=== PATIENT | female | born 1945 | race African-American/Black ===

== ENCOUNTER 2017-11-14 15:11 | Emergency (ER) | payer MEDICARE, BC ==
[~2017-11-14] VITALS: Ht 172.7 cm; Wt 100.0 kg
[~2017-11-14 15:11] MED LIST: AMLO1CAP6 PO; ATOR40TA70 PO; LORA0.5T2 PO; METF500T6 PO; PANT40TA4 PO
[2017-11-14 16:54] LABS: BASOPHILS % 1.1 % (0.0-2.0); EOSINOPHILS % 2.8 % (0.0-5.0); HEMATOCRIT. 47.6 % (36.0-48.0); HEMOGLOBIN. 15.7 g/dL (12.0-16.0); LYMPHOCYTES % 30.2 % (20.0-50.0); MEAN CORPUSCULAR HEMOGLOBIN 30.1 pg (28.0-32.0); MEAN CORPUSCULAR VOLUME 91.2 fL (81.0-99.0); MEAN PLATELET VOLUME 10.9 fl (7.4-10.4); MONOCYTES % 9.2 % (2.0-8.0); NEUTROPHILS % 56.7 % (40.0-76.0); PLATELET 262 x1000/uL (130-400); RED BLOOD CELL COUNT 5.22 mill/uL (4.2-5.4); RED CELL DISTRIBUTION WIDTH 13.8 % (11.6-14.6)
[2017-11-14 16:57] LABS: CHLORIDE 107 mEq/L (98-107)
[2017-11-14 19:28] VITALS: BP 156/74
[2017-11-14] MEDS ORDERED: IBUPROFEN 600MG TABLET PO ONE (19:30)
[2017-11-14 19:46] LABS: CLARITY URINE CLEAR (CLEAR); COLOR URINE YELLOW (YELLOW); KETONES URINE TRACE (NEGATIVE); LEUKOCYTE ESTERASE URINE NEGATIVE (NEGATIVE); NITRITE URINE NEGATIVE (NEGATIVE); OCCULT BLOOD URINE NEGATIVE (NEGATIVE); PROTEIN URINE NEGATIVE (NEGATIVE); SPECIFIC GRAVITY URINE 1.037 (1.005-1.030); UROBILINOGEN URINE 0.2 E.U./dL (0.2-1.0)
== END 2017-11-14 21:21 | disposition home or self-care (01) ==
LOC: ER 15:11
DX: R10.31 Right lower quadrant pain (principal); M54.5 Low back pain; R11.0 Nausea
CPT/HCPCS: 36415; 74176; 80053; 81003; 85025; 85610; 99285

== ENCOUNTER 2022-07-01 05:45 | Inpatient (IN) | payer BC ==
[~2022-07-01] VITALS: Ht 172.7 cm; Wt 81.6 kg
[~2022-07-01 05:45] MED LIST changes: +METF-414 PO; -METF500T6 PO; -PANT40TA4 PO; +PANT40TA51 PO
[2022-07-01] MEDS ORDERED: ONDANSETRON HCL 4MG/2ML INJ IV STA (05:54)
[2022-07-01] MEDS ORDERED: SODIUM CHLORIDE 0.9% 1,000 ML IV ONE (06:00)
[2022-07-01] MEDS ORDERED: MECLIZINE 25MG TABLET PO ONE (06:00)
[2022-07-01] MEDS ORDERED: MECLIZINE 25MG TABLET PO NR (06:15)
[2022-07-01 06:35] LABS: BASOPHILS % 0.6 % (0.0-2.0); EOSINOPHILS % 1.2 % (0.0-5.0); HEMATOCRIT. 46.4 % (36.0-48.0); LYMPHOCYTES % 21.9 % (20.0-50.0); MEAN CORPUSCULAR HEMOGLOBIN 30.6 pg (28.0-32.0); MEAN CORPUSCULAR VOLUME 94.9 fL (81.0-99.0); MEAN PLATELET VOLUME 9.9 fl (7.4-10.4); MONOCYTES % 5.8 % (2.0-8.0); NEUTROPHILS % 70.5 % (40.0-76.0); PLATELET 299 x1000/uL (130-400); RED BLOOD CELL COUNT 4.89 mill/uL (4.2-5.4); RED CELL DISTRIBUTION WIDTH 13.8 % (11.6-14.6)
[2022-07-01 06:43] LABS: PROTHROMBIN TIME 10.3 sec (9.6-11.0)
[2022-07-01 06:45] LABS: CHLORIDE 108 mEq/L (98-107)
[2022-07-01] MEDS ORDERED: LEVOFLOXACIN 750MG PREMIX 150 ML IV ONE (07:45)
[2022-07-01] MEDS ORDERED: METRONIDAZOLE 500 MG PREMIX 100 ML IV ONE (07:45)
[2022-07-01] MEDS ORDERED: KETOROLAC 30MG/ML VIAL IV ONE (08:00)
[2022-07-01] MEDS ORDERED: ONDANSETRON HCL 4MG/2ML INJ IV PRN (10:30)
[2022-07-01] MEDS ORDERED: CLONIDINE 0.1MG TABLET PO PRN (10:30)
[2022-07-01] MEDS ORDERED: GUAIFENESIN 200MG/10ML SUGAR FREE UDC PO PRN (10:30)
[2022-07-01] MEDS ORDERED: DOCUSATE SODIUM 100MG CAPSULE PO PRN (10:30)
[2022-07-01] MEDS ORDERED: NALOXONE HCL 0.4MG/ML VIAL IV PRN (10:30)
[2022-07-01] MEDS ORDERED: IPRATROPIUM/ALBUTEROL 0.5-3(2.5)MG/3ML NEB HHN PRN (10:30)
[2022-07-01] MEDS ORDERED: ALBUTEROL (0.083%) 2.5MG/3ML NEB HHN PRN (10:30)
[2022-07-01] MEDS ORDERED: ACETAMINOPHEN 325MG TABLET PO PRN ×2 (10:30)
[2022-07-01] MEDS ORDERED: MAGNESIUM/ALUMINUM HYDROXIDE/SIMETHICONE 30ML UDC PO PRN (10:30)
[2022-07-01] MEDS ORDERED: IPRATROPIUM BROMIDE (0.02%) 0.5MG/2.5ML NEB HHN PRN (10:30)
[2022-07-01 11:00] VITALS: BP 96/43
[2022-07-01] MEDS ORDERED: CEFTRIAXONE 1GM PREMIX 50 ML IV SCH (11:15)
[2022-07-01] MEDS ORDERED: DEXTROSE 50% WATER 50ML SYRINGE IV PRN (11:15)
[2022-07-01] MEDS ORDERED: MECLIZINE 25MG TABLET PO PRN (11:15)
[2022-07-01 11:31] VITALS: BP 96/43
[2022-07-01] MEDS: INSULIN LISPRO 100 UNITS/ML SUBCUT SCH ×3 (12:50→21:10)
[2022-07-01] MEDS: BLOOD SUGAR DIAGNOSTIC STRIP TEST SCH ×3 (12:52→21:01)
[2022-07-01] MEDS: SODIUM CHLORIDE 0.9% 1,000 ML IV SCH ×2 (12:55→21:15)
[2022-07-01] MEDS: METRONIDAZOLE 500 MG PREMIX 100 ML IV SCH ×2 (13:00→23:11)
[2022-07-01] MEDS: ENOXAPARIN 30MG/0.3ML SYR SUBCUT SCH ×2 (13:59→21:06)
[2022-07-01 16:00] VITALS: BP 120/55
[2022-07-01 20:00] VITALS: BP 119/55
[2022-07-01] MEDS: ATORVASTATIN CALCIUM 40MG TABLET PO SCH (21:06)
[2022-07-01] MEDS: HYDROCODONE/ACETAMINOPHEN 5/325MG TABLET PO PRN (21:07)
[2022-07-02] VITALS: BP 101/43
[2022-07-02 04:00] VITALS: BP 106/50
[2022-07-02] MEDS: HYDROCODONE/ACETAMINOPHEN 5/325MG TABLET PO PRN ×4 (04:05→21:36)
[2022-07-02] MEDS: METRONIDAZOLE 500 MG PREMIX 100 ML IV SCH ×3 (06:17→21:35)
[2022-07-02] MEDS: SODIUM CHLORIDE 0.9% 1,000 ML IV SCH ×2 (06:18→13:18)
[2022-07-02 07:08] LABS: BASOPHILS % 0.3 % (0.0-2.0); EOSINOPHILS % 0.5 % (0.0-5.0); HEMATOCRIT. 40.7 % (36.0-48.0); HEMOGLOBIN. 13.1 g/dL (12.0-16.0); LYMPHOCYTES % 20.7 % (20.0-50.0); MEAN CORPUSCULAR HEMOGLOBIN 30.6 pg (28.0-32.0); MEAN CORPUSCULAR VOLUME 95.3 fL (81.0-99.0); MEAN PLATELET VOLUME 9.7 fl (7.4-10.4); MONOCYTES % 8.6 % (2.0-8.0); NEUTROPHILS % 69.9 % (40.0-76.0); PLATELET 259 x1000/uL (130-400); RED BLOOD CELL COUNT 4.27 mill/uL (4.2-5.4); RED CELL DISTRIBUTION WIDTH 13.9 % (11.6-14.6)
[2022-07-02 07:33] LABS: CHLORIDE 117 mEq/L (98-107)
[2022-07-02] MEDS: BLOOD SUGAR DIAGNOSTIC STRIP TEST SCH ×4 (07:41→21:56)
[2022-07-02 07:50] LABS: HDL CHOLESTEROL 49 mg/dL (40-59); LDL CHOLESTEROL 80 mg/dL (5-100); T4 FREE 1.02 ng/dL (0.76-1.46)
[2022-07-02 08:00] VITALS: BP 95/43
[2022-07-02] MEDS: INSULIN LISPRO 100 UNITS/ML SUBCUT SCH ×4 (08:30→21:56)
[2022-07-02] MEDS ORDERED: DEXTROSE 50% WATER 50ML SYRINGE IV PRN (08:30)
[2022-07-02] MEDS: ENOXAPARIN 30MG/0.3ML SYR SUBCUT SCH ×2 (09:03→21:35)
[2022-07-02] MEDS: PANTOPRAZOLE SODIUM 40 MG/VIAL IV SCH (09:04)
[2022-07-02] MEDS: LEVOFLOXACIN 500MG PREMIX 100 ML IV SCH (09:04)
[2022-07-02 12:00] VITALS: BP 111/47
[2022-07-02 16:00] VITALS: BP 108/49
[2022-07-02 20:00] VITALS: BP 139/68
[2022-07-02] MEDS: ATORVASTATIN CALCIUM 40MG TABLET PO SCH (21:35)
[2022-07-03] VITALS: BP 141/80
[2022-07-03 04:00] VITALS: BP 135/60
[2022-07-03] MEDS: METRONIDAZOLE 500 MG PREMIX 100 ML IV SCH (05:22)
[2022-07-03] MEDS: HYDROCODONE/ACETAMINOPHEN 5/325MG TABLET PO PRN ×2 (05:33→14:37)
[2022-07-03 06:34] LABS: BASOPHILS % 0.5 % (0.0-2.0); EOSINOPHILS % 2.2 % (0.0-5.0); HEMOGLOBIN. 12.8 g/dL (12.0-16.0); LYMPHOCYTES % 25.2 % (20.0-50.0); MEAN CORPUSCULAR HEMOGLOBIN 30.8 pg (28.0-32.0); MEAN CORPUSCULAR VOLUME 93.6 fL (81.0-99.0); MEAN PLATELET VOLUME 9.3 fl (7.4-10.4); MONOCYTES % 7.5 % (2.0-8.0); NEUTROPHILS % 64.6 % (40.0-76.0); PLATELET 234 x1000/uL (130-400); RED BLOOD CELL COUNT 4.17 mill/uL (4.2-5.4); RED CELL DISTRIBUTION WIDTH 14.1 % (11.6-14.6)
[2022-07-03] MEDS: BLOOD SUGAR DIAGNOSTIC STRIP TEST SCH (07:00)
[2022-07-03 07:37] LABS: CHLORIDE 119 mEq/L (98-107)
[2022-07-03] MEDS: INSULIN LISPRO 100 UNITS/ML SUBCUT SCH (07:50)
[2022-07-03 08:00] VITALS: BP 110/58
[2022-07-03] MEDS: SODIUM CHLORIDE 0.9% 1,000 ML IV SCH (08:30)
[2022-07-03] MEDS: LEVOFLOXACIN 500MG PREMIX 100 ML IV SCH (08:32)
[2022-07-03] MEDS: ENOXAPARIN 30MG/0.3ML SYR SUBCUT SCH (09:29)
[2022-07-03] MEDS: PANTOPRAZOLE SODIUM 40 MG/VIAL IV SCH (09:30)
[2022-07-03] MEDS ORDERED: METR-167 MT (09:55)
[2022-07-03] MEDS ORDERED: LEVO-65 PO (09:55)
[2022-07-03] MEDS ORDERED: MECL-159 MT (09:57)
[2022-07-03 12:00] VITALS: BP 113/58
[2022-07-03 12:58] VITALS: BP 113/58
[2022-07-03 14:37] VITALS: BP 113/58
== END 2022-07-03 15:25 | disposition home or self-care (01) | DRG 392 ==
LOC: ER 05:45 → 6EST 09:15 → EDBEDREQ 09:20 → EDBEDREQTM 09:20 → 6EST 11:11
PROVIDERS: ADMIT Hospitalist; ATTEND Hospitalist
DX: K57.32 Diverticulitis of large intestine without perforation or abscess without bleeding (principal); E44.0 Moderate protein-calorie malnutrition; E11.9 Type 2 diabetes mellitus without complications; I10 Essential (primary) hypertension; H81.10 Benign paroxysmal vertigo, unspecified ear; K59.00 Constipation, unspecified; E78.5 Hyperlipidemia, unspecified; E78.00 Pure hypercholesterolemia, unspecified; Z68.27 Body mass index [BMI] 27.0-27.9, adult; Z79.899 Other long term (current) drug therapy; Z90.710 Acquired absence of both cervix and uterus; Z90.49 Acquired absence of other specified parts of digestive tract; Z80.49 Family history of malignant neoplasm of other genital organs; Z88.0 Allergy status to penicillin
CPT/HCPCS: 36415; 74176; 80048; 80053; 80061; 82962; 83036; 83605; 84439; 84443; 84481; 84484; 85025; 93005; 97162; 99285; C9113; J1650; J1815; J1885; J1956; J2405; J3490; J7030; J8597

== ENCOUNTER 2024-02-28 22:19 | Emergency (ER) | payer BC, MEDICARE ==
[~2024-02-28] VITALS: Ht 182.9 cm; Wt 85.0 kg
[~2024-02-28 22:19] MED LIST changes: +LEVO-65 PO; +MECL-299 MT; +METR-167 MT
[2024-02-28 22:23] VITALS: O2SAT 99
[2024-02-28 23:42] LABS: BASOPHILS % 0.5 % (0.0-2.0); EOSINOPHILS % 2.3 % (0.0-5.0); HEMATOCRIT. 43.4 % (36.0-48.0); HEMOGLOBIN. 14.1 g/dL (12.0-16.0); LYMPHOCYTES % 30.8 % (20.0-50.0); MEAN CORPUSCULAR HEMOGLOBIN 30.7 pg (28.0-32.0); MEAN CORPUSCULAR HGB CONC 32.4 g/dL (31.0-37.0); MEAN CORPUSCULAR VOLUME 94.7 fL (81.0-99.0); MONOCYTES % 8.7 % (2.0-8.0); NEUTROPHILS % 57.7 % (40.0-76.0); PLATELET 230 x1000/uL (130-400); RED BLOOD CELL COUNT 4.58 mill/uL (4.2-5.4); RED CELL DISTRIBUTION WIDTH 14.8 % (11.6-14.6); WHITE BLOOD COUNT 7.6 x1000/uL (4.5-11.0)
[2024-02-28 23:49] LABS: CHLORIDE 107 mEq/L (98-107); POTASSIUM 3.8 mEq/L (3.5-5.1); SODIUM 142 mEq/L (136-145)
[2024-02-28] MEDS: HYDRALAZINE 20MG/ML VIAL IV ONE (23:50)
[2024-02-28 23:51] LABS: CARBON DIOXIDE 23 mEq/L (21-32)
[2024-02-28 23:56] LABS: CREATININE 0.7 mg/dL (0.6-1.0); GLUCOSE 170 mg/dL (70-105); UREA NITROGEN BLOOD 21 mg/dL (9-23)
[2024-02-29] MEDS ORDERED: ACETAMINOPHEN 325MG TABLET PO ONE (00:15)
[2024-02-29 03:40] VITALS: BP 155/72; PULSE 80; RESP 12; O2SAT 100
[2024-02-29 03:47] VITALS: TEMP 98
[2024-02-29] MEDS: ACETAMINOPHEN 325MG TABLET PO NR (03:47)
== END 2024-02-29 03:44 | disposition home or self-care (01) ==
LOC: ER 22:19
DX: I10 Essential (primary) hypertension (principal); E11.9 Type 2 diabetes mellitus without complications; E78.00 Pure hypercholesterolemia, unspecified; Z79.899 Other long term (current) drug therapy; Z90.49 Acquired absence of other specified parts of digestive tract; Z90.710 Acquired absence of both cervix and uterus; Z88.0 Allergy status to penicillin
CPT/HCPCS: 99285; 96374; 70450; 80048; 85025; 36415; 93005; J0360